=== PATIENT | female | born 1985 | race Caucasian/White ===

== ENCOUNTER → 2019-07-11 | Day surgery (SDC) | payer MEDICAID ==
[~2019-07-11] MED LIST: AMITRIPTYLINE H25 M2 PO; ELIQUIS5 MG PO; HYDROXYZINE HCL50 MG PO; MULTIVITAMINS1 EAC7 PO; ONDANSETRON HCL4 M2 PO; ORILISSA150 MG PO; OXYBUTYNIN CHLO10 MG PO; PHENERGAN 25 MG25 M1 PO; PRINIVIL40 MG PO; TOPROL XL100 MG PO; TRAMADOL 50 MG50 MG PO; VITAMIN D32000 UNIT PO; ZANAFLEX4 MG PO; [UNRECOGNIZED DRUG - OTHER]
--- NOTE | 2019-07-11 10:27 | EKG ---
[place] [address] ELECTROCARDIOGRAM REPORT Name: IVETT ENGLAND Room: [facility]#: [id number] Admission: 07/11/19 Attend Phys: Alberto Campos DO Discharge: Date of : 83 Report #: [id number] THIS REPORT FOR: //name// [facility] Test Date: 2019-07-11 Test Time: 09:44:41 Pat Name: IVETT ENGLAND Department: Room: Gender: F [employer]: MOMO : 1985 Requested By: Alberto Campos Order Number: [id number] Yadi MD: Adin Viveros Measurements Intervals [place] Rate: 78 P: 59 [place]: 179 QRS: 67 QRSD: 83 T: 74 QT: 383 QTc: 437 Interpretive Statements Sinus rhythm No previous ECG available for comparison Electronically Signed On 07-11-2019 10:26:29 HEARING SCREENER by Adin Viveros [email or web address] <ELECTRONICALLY SIGNED> By: Adin Viveros MD, [facility] 07/11/19 1026 0944 0944 Adin Viveros MD, FACC /EPI
[2019-07-11 10:33] LABS: HEMATOCRIT 37.6 % (37.0-47.0); HEMOGLOBIN 12.2 gm/dL (12.0-15.0)
--- NOTE | 2019-07-12 18:06 | PATH ---
[place] [address] PATHOLOGY RPT PROCEDURE Name: IVETT ENGLAND Room: [facility].#: [id number] Admission: 07/11/19 Date of : 83 Discharge: Report #: [id number] Path Case #: [id number] [facility] Accession Number: [id number] . 01 Material submitted: . PART A: small bowel - SMALL BOWEL BIOPSIES FOR DIARRHEA PART B: esophagus - ESOPHAGEAL BIOPSIES 28CM FOR DYSPHAGIA . 01 Clinical history: . Nausea, vomiting, dysphagia . 02 Diagnosis: A. Small bowel biopsies: - Normal small intestinal/duodenal mucosa. . B. Esophageal biopsies 28 cm: - Mild chronic esophagitis typical of reflux. . (KELLY:sepideh; 07/12/2019) QMS 07/12/2019 1454 Local . 02 Electronically signed: . Konstantin Cadet MD, Pathologist NPI- [id number] . 01 Gross description: . A. Received in formalin labeled "[place], small bowel biopsies," and additionally labeled on the requisition as "for diarrhea," are 4 segments of wynn soft tissue measuring 1.0 x 0.6 x 0.2 cm in aggregate dimensions and ranging from 0.3 to 0.4 cm in maximum dimension. The specimen is submitted entirely in cassette A1. . B. Received in formalin labeled "[place]ett [place], esophageal biopsies 28 cm," and additionally labeled on the requisition as "for dysphagia," is a single segment of wynn soft tissue measuring 0.6 cm in maximum dimension. The specimen is entirely submitted in cassette B1. After thorough examination of the specimen container, no additional tissue was recovered. (TSD; 07/11/2019) TOB/TOB 07/11/2019 2259 Local . 02 Pathologist provided ICD-10: K20.9, R11.2, R13.10 . 02 CPT . 301465, 812289 Specimen Comment: A courtesy copy of this report has been sent to [phone] Specimen Comment: [id number] [place] [address] PATHOLOGY RPT PROCEDURE Name: IVETT ENGLAND [id number] Admission: 07/11/19 Date of : 83 Discharge: Report #: [id number] Path Case #: [id number] Specimen Comment: Report sent to / DR MORGAN Performed at: [address] [facility] [address], [place], [place] [id number] MD Israel Alvarado MD Phone: [phone] Performed at: [address] [facility] [address] [address], [place], [place] [id number] MD Konstantin Cadet MD Phone: [phone]
== END | disposition home or self-care (01) ==
LOC: M.SUR 09:14
PROVIDERS: Internal Medicine Gastroenterology
DX: R11.2 Nausea with vomiting, unspecified (principal); R13.14 Dysphagia, pharyngoesophageal phase; K21.0 Gastro-esophageal reflux disease with esophagitis; K26.9 Duodenal ulcer, unspecified as acute or chronic, without hemorrhage or perforation; K44.9 Diaphragmatic hernia without obstruction or gangrene; F32.9 Major depressive disorder, single episode, unspecified; F41.9 Anxiety disorder, unspecified; G43.909 Migraine, unspecified, not intractable, without status migrainosus; M81.0 Age-related osteoporosis without current pathological fracture; Z98.890 Other specified postprocedural states; Z91.040 Latex allergy status; Z79.01 Long term (current) use of anticoagulants; Z79.899 Other long term (current) drug therapy; Z88.8 Allergy status to other drugs, medicaments and biological substances